=== PATIENT | female | born 1990 ===

== ENCOUNTER 2018-07-28 00:47 | Emergency (ER) | payer SELFPAY ==
[2018-07-28] MEDS ORDERED: Ondansetron ODT 4 MG TAB ONE (02:45)
== END 2018-07-28 04:08 | disposition home or self-care (01) ==
LOC: ERS 00:47
DX: R11.2 Nausea with vomiting, unspecified (principal)
CPT/HCPCS: 99283; Q0162

== ENCOUNTER 2019-05-04 23:14 | Emergency (ER) | payer BC ==
[2019-05-05] MEDS ORDERED: Ondansetron ODT 4 MG TAB ONE (00:01)
== END 2019-05-05 01:05 | disposition home or self-care (01) ==
LOC: ERS 23:14
DX: R11.2 Nausea with vomiting, unspecified (principal); J45.909 Unspecified asthma, uncomplicated; Z79.899 Other long term (current) drug therapy
CPT/HCPCS: 99283; Q0162